=== PATIENT | male | born 1945 | race Caucasian/White ===

== ENCOUNTER 2017-04-18 09:06 | Inpatient (IN) | payer OTHER, MEDICARE ==
[~2017-04-18] VITALS: Ht 188 cm; Wt 83.9 kg
--- NOTE | 2017-04-18 09:17 | ED SYNCOPE COMPLAINT ---
History of Present Illness General Chief Complaint: Syncope and Near-Syncope Stated Complaint: NEAR SYNCOPE/R/O DEHYDRATION Vital Signs & Intake/Output Vital Signs & Intake/Output Vital Signs Date Time Temp Pulse Resp B/P B/P Pulse O2 O2 Flow FiO2 Mean Ox Delivery Rate 04/19 1028 Room Air Room Air 04/19 0948 Room Air 04/19 0712 98.2 57 18 104/54 94 Nasal Cannula 04/18 2218 98.0 57 20 100/56 93 04/18 1813 99.7 62 20 100/60 94 04/18 1810 Nasal 2.0L Cannula 04/18 1610 100.8 96 22 120/77 96 Nasal 3.0L Cannula 04/18 1530 Nasal 2.0L Cannula 04/18 1404 98.9 04/18 1311 98.9 102 20 104/58 94 Nasal 3.0L Cannula 04/18 1235 100.2 100 04/18 1210 101.2 90 22 106/59 96 Nasal 3.0L Cannula ED Intake and Output 04/19 0000 04/18 1200 Intake Total 770 2100 Output Total 330 Balance 440 2100 Intake, IV 450 2100 Intake, Oral 320 0 Output, Urine 330 Patient 185 lb 185 lb Weight Weight Reported by Patient Reported by Patient Measurement Method Triage Note: PT HAD NEAR SYNCOPE IN SHOWER WAS ABLE TO GET TO PT AND SIT HIM DOWN. WHEN EMS SHOWED UP PT HAS A SECOND NEAR SYNCOPAL EPISODE. PT HAD NEVER FALLEN AND DID NOT HIT HIS HEAD. (Sebastian GARCIA,Mc) General Source: patient, family, EMS Exam Limitations: no limitations Allergies Coded Allergies: NO KNOWN ALLERGIES (NONE 04/18/17) NKDA PER [facility] ANTIBIOTIC ORDER SHEET. -- JUDY 06/25/14 Reconcile Medications Apixaban (Eliquis) 5 MG TABLET 1 TAB PO BID BLOOD THINNER (Reported) Aspirin (Lo-Dose Aspirin EC) 81 MG TABLET.DR 1 TAB PO DAILY HEART HEALTH ( Reported) Oseltamivir Phosphate (Tamiflu) 75 MG CAPSULE 1 CAP PO BID FLU (Reported) Rosuvastatin Calcium (Crestor) 10 MG TABLET 1 TAB PO DAILY CHOLESTEROL ( Reported) Valsartan (Diovan) 160 MG TABLET 1 TAB PO DAILY HEART (Reported) Triage Nurses Notes Reviewed? yes HPI: This is a 71-year-old male with history of hypertension, paroxysmal A. fib who presents to the ER via EMS from home for chief complaint of syncopal episode while in the shower. According to the patient he had high fever of 103 in the middle of the night with right rigors and chills. He is currently on Tamiflu and azithromycin. He's been treating himself for what he presumed was the flu and for pneumonia. History of pneumonia previously. The states in the shower this morning while he was trying to get ready for work his legs wouldn't hold him and he passed out. She prevented him from hitting his head. His eyes rolled back. No incontinence or postictal state. Patient has been reporting chest pain which he states is not exertional but only when he,'s. He was able to take a 1 mile walk with his yesterday feeling better than he had since Sunday however last night things came worse. (Heidi CLEMONS,Clara) Past History Travel History Traveled to [place] past 21 day No Medical History Any Pertinent Medical History? see below for history Cardiovascular: AFIB, CAD, hypertension, hyperlipidemia, STENTS 2.5 YEARS AGO RCA/ LED Surgical History Surgical History: non-contributory Psychosocial History What is your primary language Ugandan Tobacco Use: Never used ETOH Use: occasional use Illicit Drug Use: denies illicit drug use Family History Hx Contributory? No (Mc Em) Review of Systems Review of Systems Constitutional: Reports: see HPI, chills, fever, malaise, weakness. EENTM: Reports: nasal congestion. Respiratory: Reports: see HPI, cough, short of breath, wheezing. Cardiovascular: Reports: no symptoms. GI: Reports: no symptoms. Genitourinary: Reports: no symptoms. Musculoskeletal: Reports: muscle pain. Skin: Reports: no symptoms. Neurological/Psychological: Reports: weakness. All Other Systems: Reviewed and Negative (Mc mE) Physical Exam Physical Exam General Appearance: well developed/nourished, no apparent distress, alert, awake , anxious Head: atraumatic, normal appearance Eyes: Bilateral: normal appearance, PERRL, EOMI. Ears, Nose, Throat: normal pharynx, normal ENT inspection, hearing grossly normal, moist mucus membranes Neck: normal inspection, supple, full range of motion Respiratory: chest non-tender, no respiratory distress, wheezing (BILATERAL ) Cardiovascular: regular rate/rhythm, normal peripheral pulses Gastrointestinal: normal bowel sounds, soft, non-tender, no organomegaly Back: normal inspection, normal range of motion, no vertebral tenderness Extremities: normal inspection, normal range of motion, no edema Psychiatric: awake, alert, oriented x 3 Cranial Nerves: normal hearing, normal speech, PERRL Coordination/Gait: normal finger to nose Motor/Sensory: no motor/sensory deficits Skin: intact, normal color, warm/dry Lymphatic: no anterior cervical alycia Core Measures ACS in differential dx? No CVA/TIA Diagnosis: No Sepsis Present: No Sepsis Focused Exam Completed? No (Sebastian GARCIA,Mc) Progress Differential Diagnosis: AMI, aortic valve, drug induced syncope, orthostatic syncope, pulmonary embolus, SEPSIS, PNEUMONIA, INFLUENZA, DEHYDRATION, ELECTROLYTE ABNORMALITY, uti Plan of Care: Orders Procedure Date/time Status THERAPIST ORDERS 04/19 1027 Complete RT: Evaluation 04/19 1027 Active HEPATIC FUNCTION PANEL 04/19 0600 Complete CBC WITHOUT DIFFERENTIAL 04/19 0600 Complete BASIC ELECTROLYTES PLUS BUN&CR 04/19 0600 Complete Regular Diet 04/18 L Complete TROPONIN LEVEL 04/18 2200 Complete EKG 04/18 2200 Active Telemetry/Sewer And Cutter Finger Buff Material 04/18 2146 Active OXYGEN SETUP (GEN) 04/18 1900 Complete Vital Signs 04/18 1813 Active Teach/Educate 04/18 1813 Active Pain Treatment and Response 04/18 1813 Active Nutritional Intake, Monitor 04/18 1813 Active Isolation 04/18 1813 Active Intake & Output 04/18 1813 Active Patient Care Conference 04/18 1813 Active Activity/Ambulation 04/18 1813 Active Lab Add-on Test 04/18 1600 Active TROPONIN LEVEL 04/18 1600 Complete EKG 04/18 1600 Active STREP PNEUMO URINARY ANTIGEN 04/18 1440 Complete LEGIONELLA URINARY ANTIGEN 04/18 1440 Complete TROPONIN LEVEL 04/18 1320 Complete EKG 04/18 1319 Active Pathway - chart 04/18 1157 Active House Staff 04/18 1157 Active Patient Data 04/18 1157 Active Code Status 04/18 1157 Active LACTIC ACID 04/18 0943 Complete Intake & Output 04/18 0926 Active OXYGEN SETUP CHG 04/18 UNK Complete OXYGEN 04/18 UNK Complete OXYGEN TRANSPORT 04/18 UNK Complete TRC EVALUATION (GEN) 04/18 UNK Complete Lab Add-on Test 04/18 UNK Active VTE Mechanical Prophylaxis 04/18 UNK Active Vital Signs 04/18 UNK Complete MISTAKE 04/18 UNK Complete Telemetry/Sewer And Cutter Finger Buff Material 04/18 UNK Complete Current Medications Sig/David Start time Last Medication Dose Stop Time Status Admin Oseltamivir Phosphate 75 MG BID 04/18 2199 AC 04/19 (Tamiflu 75MG) 04/19 2200 0908 Atorvastatin Calcium 10 MG 1700 04/18 1700 AC (Lipitor) Albuterol Sulfate 3 ML Q6P PRN 04/18 1215 AC (Proventil) Apixaban 5 MG BID 04/18 1203 AC 04/19 (Eliquis) 0908 Aspirin Buffered 81 MG DAILY 04/18 1203 AC 04/19 (Ecotrin) 0908 Acetaminophen 650 MG Q6P PRN 04/18 1200 AC 04/18 (Tylenol) 2326 Acetaminophen 1,000 MG Q6P PRN 04/18 1200 AC 04/18 (Ofirmev) 1705 Oxycodone/ 1 TAB Q6P PRN 04/18 1200 AC Acetaminophen (Percocet) Laboratory Tests 04/19/17 0630: Anion Gap 8, Estimated GFR > 60, BUN/Creatinine Ratio 13.0, Total Bilirubin 0.4, Direct Bilirubin 0.2, AST 56, ALT 81 H, Alkaline Phosphatase 67, Total Protein 4.6 L, Albumin 2.5 L, CBC w Diff MAN DIFF ORDERED, RBC 3.77 L, MCV 93.9, MCH 31.3 H, MCHC 33.3, RDW 13.7, MPV 8.6, Gran % 87.0 H, Lymphocytes % 11.9 L, Monocytes % 1.1 L, Eosinophils % 0, Basophils % 0, Absolute Granulocytes 12.6 H, Segmented Neutrophils 63, Band Neutrophils 23 H, Absolute Lymphocytes 1.7, Lymphocytes 14 L, Absolute Monocytes 0.2, Absolute Eosinophils 0, Absolute Basophils 0, Platelet Estimate DECREASED, Normocytic RBCs VERIFIED, Normochromic RBCs VERIFIED 04/18/17 2239: Troponin I 0.02 04/18/17 1700: Troponin I 0.03 04/18/17 1400: Urinalysis LIGHT H, Urine Color YEL, Urine Clarity CLEAR, Urine pH 7.0, Ur Specific [place] 1.015, Urine Protein TRACE H, Urine Ketones NEG, Urine Nitrite NEG, Urine Bilirubin NEG, Urine Urobilinogen 0.2, Ur Leukocyte Esterase NEG, Ur Microscopic SEDIMENT EXAMINED, Urine RBC 1-3, Urine WBC RARE, Urine Bacteria FEW H, Urine Hemoglobin NEG, Urine Glucose NEG 04/18/17 1335: Troponin I 0.02 Microbiology 04/18 1440 URINE ROUT: Legionella Antigen - COMP 04/18 1440 URINE ROUT: Streptococcus pneumoniae Antigen (M - COMP Care of patient was transferred to Dr. Gordon. Hand-Off Endorsed To: Clara Gordon MD Endorsed Time: 1117 Pending: other (admission ) (Mc Em) Diagnostic Imaging: Viewed by Me: Radiology Read. Discussed w/RAD: Radiology Read. Pre-Hospital EKG: AFIB RVR, NSR Initial ED EKG: NSR (PAC) Prior EKG: unchanged Rhythm Strip: normal sinus rhythm Comments: PATIENT: RENETTA JONES PRESENT AGE: 71 PATIENT ACCOUNT NO: [id number] : 43 LOCATION: [facility] ORDERING PHYSICIAN: Clara Gordon MD SERVICE DATE: 04/18/17 EXAM TYPE: RAD - XRY-PORTABLE CHEST XRAY EXAMINATION: XR PORTABLE CHEST CLINICAL INFORMATION: Cough. Fever. Syncope. COMPARISON: None TECHNIQUE: Portable frontal view of the chest was obtained. FINDINGS: The lungs are mildly hypoexpanded. There is mild asymmetrical elevation of the right hemidiaphragm. Left retrocardiac densities are noted, atelectasis is favored over pneumonia. The remainder of the lungs appear clear. No pleural effusions, pulmonary edema or pneumothorax. Cardiomediastinal silhouette is within normal limits for technique. The osseous structures are unremarkable. IMPRESSION: Lower lung volumes. Left retrocardiac linear opacities, atelectasis is favored over pneumonia. If clinically warranted consider chest x-rays in PA and lateral views. DICTATED BY: Andrea Estrada MD DATE/TIME DICTATED:04/18/171103 MEDICAL CLAIMS ANALYST:ANA DATE/TIME TRANSCRIBED:04/18/171103 CONFIDENTIAL, DO NOT COPY WITHOUT APPROPRIATE AUTHORIZATION. <Electronically signed in Other Vendor System> SIGNED BY: Andrea Estrada MD 04/18/17 110 (Clara Gordon MD) Departure Departure Referrals: Renetta Jones MD Departure Forms: Customer Survey General Discharge Information (Mc Em) Departure Time of Disposition: 1120 Disposition: STILL A PATIENT Condition: Stable Clinical Impression Primary Impression: Influenza B Secondary Impressions: PAF (paroxysmal atrial fibrillation), Pneumonia, Syncope and collapse Admission Note Spoke With: Sugar Smith MD Documentation of Exam: Documentation of any treatments & extenuating circumstances including Concerns Regarding Discharge (functional status, medication knowledge or non-compliance, living conditions, etc.) that warrant an admission rather than observation: [ TELE MONITOR, SERIAL EKG/TROPONIN, TAMIFLU, IV ABX, TRC/NEBS, IV FLUIDS, ANTIPYRETICS, F/U CULTURES] PA/RESTAURANT TEAM MEMBER Co-Sign Statement Statement: ED Attending supervision documentation- [X] I saw and evaluated the patient. I have also reviewed all the pertinent lab results and diagnostic results. I agree with the findings and the plan of care as documented in the PA's/RESTAURANT TEAM MEMBER's documentation. [X] I have reviewed the ED Record and agree with the PA's/RESTAURANT TEAM MEMBER's documentation. [] Additions or exceptions (if any) to the PAs/RESTAURANT TEAM MEMBER's note and plan are summarized below: [] (Heidi CLEMONS,Clara) ED Attending Observation Initial Observation Note: I have seen and personally examined RENETTA JONES on 04/18/17 at 1100. I agree with the current emergency department documentation. The disposition (admission or discharge) is uncertain at this time, he needs a period of observation for the following reason(s): The ED Nurse caring for this patient has been personally informed as to what the patient is being observed for. (Sebastian GARCIA,Mc)
[2017-04-18 09:53] LABS: ABSOLUTE BASOPHIL COUNT 0 /CUMM (0.0-0.2); ABSOLUTE EOSINOPHIL COUNT 0 /CUMM (0.0-0.7); ABSOLUTE GRANULOCYTE CT 9.8 /CUMM (1.4-6.5); ABSOLUTE LYMPH COUNT 0.4 /CUMM (1.2-3.4); ABSOLUTE MONOCYTE COUNT 0.3 /CUMM (0.10-0.60); BASOPHIL % 0.1 % (0.0-2.0); EOSINOPHIL % 0 % (0-5); GRANULOCYTE % 93.1 % (42.2-75.2); HEMATOCRIT 41.9 % (42-52); MEAN CORPUSCULAR HGB 31.3 PG (27.0-31.0); MEAN CORPUSCULAR HGB CONC 34.1 G/DL (33.0-37.0); MEAN CORPUSCULAR VOLUME 91.8 FL (80.0-94.0); MEAN PLATELET VOLUME 8.3 FL (7.4-10.4); PLATELET COUNT 160 /CUMM (130-400); RBC DISTRIBUTION WIDTH 13.1 % (11.5-14.5); RED BLOOD CELL CT 4.57 /CUMM (4.70-6.10); WHITE BLOOD CELL COUNT 10.5 /CUMM (4.8-10.8)
[2017-04-18] MEDS ORDERED: ELIQUIS5 M1 PO (10:10)
[2017-04-18] MEDS ORDERED: LO-DOSE ASPIRIN81 MG PO (10:11)
[2017-04-18] MEDS ORDERED: TAMIFLU75 M1 PO (10:11)
[2017-04-18] MEDS ORDERED: CRESTOR10 M1 PO (10:13)
[2017-04-18] MEDS ORDERED: DIOVAN160 MG PO (10:14)
--- NOTE | 2017-04-18 11:09 | RADIOLOGY REPORT ---
EXAMINATION: XR PORTABLE CHEST CLINICAL INFORMATION: Cough. Fever. Syncope. COMPARISON: None TECHNIQUE: Portable frontal view of the chest was obtained. FINDINGS: The lungs are mildly hypoexpanded. There is mild asymmetrical elevation of the right hemidiaphragm. Left retrocardiac densities are noted, atelectasis is favored over pneumonia. The remainder of the lungs appear clear. No pleural effusions, pulmonary edema or pneumothorax. Cardiomediastinal silhouette is within normal limits for technique. The osseous structures are unremarkable. IMPRESSION: Lower lung volumes. Left retrocardiac linear opacities, atelectasis is favored over pneumonia. If clinically warranted consider chest x-rays in PA and lateral views.
--- NOTE | 2017-04-18 11:53 | History & Physical ---
Mynor Fay 04/18/17 1153: General Information and HPI MD Statement: I have seen and personally examined RENETTA ECHOLS and documented this H&P. The patient is a 71 year old M who presented with a patient stated chief complaint of fever, chills, near syncope. Source of Information: patient, family Exam Limitations: no limitations History of Present Illness: This is a 71-year-old male with past medical history significant for hypertension, history of paroxysmal atrial fibrillation status post ablation 4 years ago, on anticoagulation eliqus 5 mg twice a day, hyperlipidemia, coronary artery disease status post stent placement RCA and left main coronary artery 3 years ago presented to the emergency department for evaluation of fever, chills, near syncope this morning. Patient reports fever and chills since last Sunday, max temperature 103. He started taking Tamiflu since 04/15/2017 75 mg twice daily-completed 3 day course so far. Patient also reports taking azithromycin since Sunday, completed 4 days of Z-Kostas so far. Patient reports generalised weakness, shortness of breath on exertion, chest pain from coughing. Also reports green colored sputum production. Given his symptoms he started Tamiflu and azithromycin for bronchitis. Patient reports an episode of near syncope this morning when he was taking shower. He was too weak to stand up. His helped him to get out of the shower. EMS was called. EMS noticed one more episode of near syncope. Denies any loss of consciousness, seizure episode, hitting head, post event confusion, urinary or bladder incontinence. Reports lightheadedness and dizziness prior to the evening. Review of systems positive for fever, chills, productive cough, generalized weakness, shortness of breath on exertion, musculoskeletal chest pain from coughing. Denied any nausea, vomiting, abdominal pain, constipation, diarrhea, change in urinary habits. Patient also reports being dehydrated for the last 3 days. Also reports generalized body aches and headache. Patient denies any smoking, alcohol abuse, illicit drug abuse. Family history significant for coronary artery disease father, rheumatic heart disease mother, atrial fibrillation sister. Off note he lives at home with his and takes care of himself. He works as a primary care physician. Allergies/Medications Allergies: Coded Allergies: NO KNOWN ALLERGIES (NONE 04/18/17) NKDA PER [facility] ANTIBIOTIC ORDER SHEET. -- JUDY 06/25/14 Compliance With Home Meds: GOOD Past History Travel History Traveled to [place] past 21 day No Medical History Cardiovascular: AFIB, CAD, hypertension, hyperlipidemia, STENTS 2.5 YEARS AGO RCA/ LED Surgical History Surgical History: hernia repair-inguinal Past Family/Social History Family History Relations & Conditions if any Relation not specified for: *No pertinent family history Psychosocial History Smoking Status: Former Smoker ETOH Use: occasional use Illicit Drug Use: denies illicit drug use Review of Systems Review of Systems Constitutional: Reports: chills, fever, weakness. Denies: diaphoresis. EENTM: Denies: blurred vision, double vision. Cardiovascular: Reports: syncope. Denies: chest pain, edema, orthopena, palpitations, peripheral edema. Respiratory: Reports: cough, short of breath, sputum production. Denies: hemoptysis, orthopnea, stridor, wheezing. GI: Denies: abdominal pain, bloating, constipation, diarrhea, distention. Genitourinary: Denies: dysuria, frequency, hematuria. Musculoskeletal: Denies: back pain, gout, joint pain. Neurological/Psychological: Denies: anxiety, ataxia, confusion, depressed. Exam & Diagnostic Data Last 24 Hrs of Vital Signs/I&O Vital Signs Date Time Temp Pulse Resp B/P B/P Pulse O2 O2 Flow FiO2 Mean Ox Delivery Rate 04/18 1210 101.2 90 22 106/59 96 Nasal 3.0L Cannula 04/18 1130 99.0 04/18 1108 99.0 82 22 113/74 94 Nasal 3.0L Cannula 04/18 1025 94 Nasal 2.0L Cannula 04/18 0926 97 04/18 0924 100.0 74 18 102/64 96 Room Air Intake & Output 04/18 1600 04/18 0800 04/18 0000 Intake Total 2100 Output Total Balance 2100 Intake, IV 2100 Intake, Oral 0 Patient 83.915 kg Weight Weight Reported by Patient Measurement Method Physical Exam General Appearance Alert, Oriented X3, Cooperative, No Acute Distress Skin No Rashes, No Breakdown Skin Temp/Moisture Exam: Warm/Dry Sepsis Skin Exam (color): Normal for Ethnicity HEENT Atraumatic, PERRLA, EOMI, Mucous Membr. moist/pink Neck Supple, No JVD Lymphatic Axillary nl, Cervical nl Cardiovascular Regular Rate, Normal S1, Normal S2, No Murmurs Lungs Clear to Auscultation, Normal Air Movement Abdomen Normal Bowel Sounds, Soft, No Tenderness Neurological Strength at 5/5 X4 Ext, Cranial Nerves 3-12 NL, Reflexes 2+ Extremities No Clubbing, No Cyanosis, No Edema, Normal Pulses, No Tenderness/ Swelling Vascular Normal Pulses, Pulses Symmetrical Sepsis Peripheral Pulse Location: Radial Sepsis Peripheral Pulse Exam: Normal Sepsis Cap Refill Exam: <2 Sec Last 24 Hrs of Labs/Ervin: Laboratory Tests 04/18/17 1004: Virus Culture Pending 04/18/17 0943: Lactic Acid Pending 04/18/17 0943: Anion Gap 11, Estimated GFR 54 L, BUN/Creatinine Ratio 12.3, Glucose 116 H, Calcium 9.0, Magnesium 1.7, Total Bilirubin 0.6, AST 119 H, ALT 118 H, Alkaline Phosphatase 106, Troponin I 0.03, Total Protein 6.7, Albumin 3.9, Globulin 2.8, Albumin/Globulin Ratio 1.4, Triglycerides 56, Cholesterol 133, LDL Cholesterol, Calc 64 L, HDL Cholesterol 58, Cholesterol/HDL Ratio 2, TSH &T3 & Free T4 Intrp 1.050, CBC w Diff MAN DIFF ORDERED, RBC 4.57 L, MCV 91.8, MCH 31.3 H, MCHC 34.1, RDW 13.1, MPV 8.3, Gran % 93.1 H, Lymphocytes % 3.7 L, Monocytes % 3.1, Eosinophils % 0, Basophils % 0.1, Absolute Granulocytes 9.8 H, Segmented Neutrophils 70, Band Neutrophils 21 H, Absolute Lymphocytes 0.4 L, Lymphocytes 6 L, Monocytes 3, Absolute Monocytes 0.3, Absolute Eosinophils 0, Absolute Basophils 0, Platelet Estimate ADEQUATE, Normocytic RBCs VERIFIED, Normochromic RBCs VERIFIED, Fld Total RBCs Counted 100 Microbiology 04/18 1029 LOWER RESP: Respiratory Culture - ORD 04/18 1029 LOWER RESP: Gram Stain - ORD 04/18 1000 BLOOD: Blood Culture - RECD 04/18 944 BLOOD: Blood Culture - RECD 04/18 09 NASOPHARYN: Influenza Virus A & B Rapid Smear - COMP INFLUENZA TYPE B Diagnostic Data EKG Results Sinus rhythm, atrial premature complexes, no ST-T wave changes CXR Results Atelectasis versus pneumonia Assessment/Plan Assessment: This is a 71-year-old male with past medical history significant for hypertension, history of paroxysmal atrial fibrillation status post ablation 4 years ago, on anticoagulation eliqus 5 mg twice a day, hyperlipidemia, coronary artery disease status post stent placement RCA and left main coronary artery 3 years ago presented to the emergency department for evaluation of fever, chills, near syncope this morning. vitals MAXIMUM TEMPERATURE 101.2, heart rate 74, respiratory rate 18, blood pressure 102/64, saturating at 96 on room air. WBC 10.5, 21 bands, hemoglobin 14 and hematocrit 41, platelet 160 Sodium 135, potassium 4.1, BUN 16 and creatinine 1.3 Troponin normal Positive for flu. Received ceftriaxone, normal saline bolus in the emergency room. Chest x-ray findings suggestive of atelectasis versus pneumonia of left lower lobe EKG sinus rhythm, premature atrial complexes, no ST-T wave changes. patient was found to be in atrial fibrillation,, rate 150, irregularly irregular RR interval in the ambulance. Problem list 1. Fever, flu 2. Bronchitis/pneumonia 3. Near syncope 4. Paroxysmal atrial fibrillation 5. Acute kidney injury 7. Abnormal LFTs 8. History of CAD status post stent placement 9. Hyperlipidemia 10. History of hypertension Fever and flu/bronchitis Patient reports fever and chills since last Sunday, max temperature 103. He started taking Tamiflu since 04/15/2017 75 mg twice daily-completed 3 day course so far. Patient also reports taking azithromycin since Sunday, completed 4 days of Z-Kostas so far. Patient reports generalised weakness, shortness of breath on exertion, chest pain from coughing. Also reports green colored sputum production. Given his symptoms he started Tamiflu and azithromycin for bronchitis. * MAXIMUM TEMPERATURE 101.2 in the emergency room, positive for flu. * Found to have 21 bands. * Admit to telemetry floor for near syncope and cardiac monitoring * Monitor vitals closely every shift * Provide supplemental oxygen if necessary * Continue Tamiflu 75 mg twice daily for 2 more days * Received last dose of azithromycin in the emergency room today. Completed 5 days of Z-Kostas for bronchitis. * The total respiratory care * Albuterol inhaler treatments * Tylenol for fever * Closely monitor WBC and fever curve * Please follow-up lactic acid Near syncope Patient reports an episode of near syncope this morning when he was taking shower. EMS was called. EMS noticed one more episode of near syncope. Denies any loss of consciousness, seizure episode, hitting head, post event confusion, urinary or bladder incontinence. Reports lightheadedness and dizziness prior to the event. * Continuous telemetry monitoring * Serial troponin and EKG at 4 PM and 10PM. * Follow-up with cardiology recommendations Dr. Smith * Follow-up orthostatic vitals Paroxysmal atrial fibrillation Patient has history of paroxysmal atrial fibrillation status post ablation 4 years ago. He has been taking ELIQUS 5 mg twice daily. He was found to have an episode of paroxysmal A. fib in the ambulance. However he is in sinus rhythm with no ST-T wave changes, rate 78 in the emergency room. * Continuous telemetry monitoring * Follow cardiology recommendations * Continue home dose of ELIQUS 5 mg twice daily Acute kidney injury Patient was found to have 1.3 creatinine at the time of admission. His baseline creatinine was 1. Most likely from dehydration and flu. * Please hold home medication valsartan for now * Continue gentle IV hydration 2 bags of normal saline 75 mg/hr was ordered * Repeat creatinine in a.m. * Please hold any nsaids and MABEL inhibitor's Abnormal LFTs Patient was found to have ALT and AST elevation 119 and 118. No prior LFT abnormalities. Most likely from statin use and dehydration. * Continue gentle hydration * Repeat LFTs in the a.m. Hyperlipidemia-continue Lipitor 10 mg daily Coronary artery disease-continue home medications baby aspirin 81 daily Borderline blood pressure-hold valsartan DVT prophylaxis on eliqus Full code Regular diet Pain pathway ordered As Ranked By This Provider Problem List: 1. Syncope and collapse 2. PAF (paroxysmal atrial fibrillation) 3. Influenza B 4. Pneumonia Core Measures/Misc (11/19) Acute Coronary Syndrome ACS Diagnosis: No Congestive Heart Failure Congestive Heart Failure Diagnosis No Cerebrovascular Accident CVA/TIA Diagnosis: No VTE (View Protocol) VTE Risk Factors No risk factors No Mechanical VTE Prophylaxis d/t N/A MechProphylax Ordered No VTE Pharm Prophylaxis d/t NA PharmProphylax ordered Sepsis (View protocol) Sepsis Present: No Maninder Smith MD 04/19/171926: General Information and HPI Allergies/Medications Home Med list Acetaminophen 500 MG TABLET 2 TAB PO Q8P PRN Fever or body aches . Apixaban (Eliquis) 5 MG TABLET 1 TAB PO BID BLOOD THINNER (Reported) Aspirin (Lo-Dose Aspirin EC) 81 MG TABLET. 1 TAB PO DAILY HEART HEALTH ( Reported) Oseltamivir Phosphate (Tamiflu) 75 MG CAPSULE 1 CAP PO BID FLU (Reported) Potassium Chloride 20 MEQ TABLET.ER 1 TAB PO DAILY Supplement . Rosuvastatin Calcium (Crestor) 10 MG TABLET 1 TAB PO DAILY CHOLESTEROL ( Reported) Valsartan (Diovan) 160 MG TABLET 1 TAB PO DAILY HEART (Reported) Attending MD Review Statement Attending Statement Attending MD Statement: examined this patient, discuss w/resident/PA/CARAMEL COLORING OPERATOR, agreed w/resident/PA/CARAMEL COLORING OPERATOR, discussed with family, reviewed EMR data (avail), discussed with nursing, discussed with case mgmt, reviewed images, amended to note Attending Assessment/Plan: the patient was seen and evaluated, the case was discussed in detail with the house staff and with the patient and his . At the present time, the patient is to be admitted to the hospital for further evaluation and treatment. He has influenza and possible left lower lobe atelectasis/pneumonia. His white count is normal but he does have a bandemia. He had an episode of syncope prior to admission which was apparently associated with paroxysmal atrial fibrillation and a rapid ventricular rate. In addition, the patient has evidence of dehydration, mild acute renal insufficiency, and transaminitis with an elevated SGOT and SGPT. in addition, the patient has had brief episodes of atypical chest discomfort which appeared to be musculoskeletal or pleuritic related to coughing. There is no evidence of any acute cardiac issue at the present time. Recommendations: -Admitted to telemetry monitored floor -Continue regular medicines -IV fluid resuscitation with 1-1/2-2-1/2 L of saline over the next 24 hours -No need to perform echocardiogram at the present time -Follow-up laboratories in the morning including CBC with differential, follow- up liver function tests, all of electrolytes and renal function -Encourage by mouth intake -continue supplemental oxygen with reassessment in the morning. -if there is any evidence of chest discomfort, please notify me and obtain an EKG.
--- NOTE | 2017-04-18 12:38 | Cons- Cardiology ---
General Information and HPI Consulting Request Date of Consult: 04/18/17 Requested By: Sugar Smith MD Allergies/Medications Allergies: Coded Allergies: NO KNOWN ALLERGIES (NONE 04/18/17) NKDA PER [facility]S ANTIBIOTIC ORDER SHEET. -- JUDY 06/25/14 Home Med List: Apixaban (Eliquis) 5 MG TABLET 1 TAB PO BID BLOOD THINNER (Reported) Aspirin (Lo-Dose Aspirin EC) 81 MG TABLET.DR 1 TAB PO DAILY HEART HEALTH ( Reported) Oseltamivir Phosphate (Tamiflu) 75 MG CAPSULE 1 CAP PO BID FLU (Reported) Rosuvastatin Calcium (Crestor) 10 MG TABLET 1 TAB PO DAILY CHOLESTEROL ( Reported) Valsartan (Diovan) 160 MG TABLET 1 TAB PO DAILY HEART (Reported) Past History Travel History Traveled to [place] past 21 day No Medical History Cardiovascular: AFIB, CAD, hypertension, hyperlipidemia, STENTS 2.5 YEARS AGO RCA/ LED Family History Relations & Conditions If Any: Relation not specified for: *No pertinent family history Psychosocial History ETOH Use: occasional use Illicit Drug Use: denies illicit drug use Assessment/Plan Consult Acknowledgment - Thank you for your consult request.
[2017-04-18 18:13] VITALS: BP 100/60
[2017-04-18 22:18] VITALS: BP 100/56
[2017-04-19 07:12] VITALS: BP 104/54
--- NOTE | 2017-04-19 07:14 | PN- Housestaff ---
Lori CLEMONS,[facility] 04/19/1714: Subjective Follow-up For: Generalized weakness, cough, shortness of breath, Influenza Complaints: Cough Tele-Events Since Last Visit: Sinus bradycardiasinus rhythm. Heart rate 49 to68 bpm. No events Subjective: The patient feels improved since yesterday and feels stronger. His shortness of breath is improved and he no longer feels weak. However he still has some cough productive of whitish sputum. He had a fever yesterday evening around 4 PM but no fevers since then and overnight. He denies chest pain, palpitations, lightheadedness. He is anxious to go home today. Review of Systems Constitutional: Reports: malaise. Denies: chills, fever, weakness. EENTM: Denies: nasal congestion, throat pain. Cardiovascular: Denies: chest pain, edema, orthopena, palpitations. Respiratory: Denies: cough, hemoptysis, short of breath. Gastrointestinal: Denies: abdominal pain, nausea, vomiting. Genitourinary: Denies: dysuria, frequency. Objective Last 24 Hrs of Vital Signs/I&O Vital Signs Date Time Temp Pulse Resp B/P B/P Pulse O2 O2 Flow FiO2 Mean Ox Delivery Rate 04/19 1028 Room Air Room Air 04/19 0948 Room Air 04/19 0712 98.2 57 18 104/54 94 Nasal Cannula 04/18 2218 98.0 57 20 100/56 93 04/18 1813 99.7 62 20 100/60 94 04/18 1810 Nasal 2.0L Cannula 04/18 1610 100.8 96 22 120/77 96 Nasal 3.0L Cannula 04/18 1530 Nasal 2.0L Cannula 04/18 1404 98.9 Intake & Output 04/19 1600 04/19 0800 04/19 0000 Intake Total 110 770 Output Total 525 275 330 Balance -525 -165 440 Intake, IV 10 450 Intake, Oral 100 320 Output, Urine 525 275 330 Patient 185 lb Weight Weight Reported by Patient Measurement Method Physical Exam General Appearance: Alert, Oriented X3, Cooperative, No Acute Distress Skin: No Rashes Skin Temp/Moisture Exam: Warm/Dry Sepsis Skin Exam (color): Normal for Ethnicity HEENT: Atraumatic, PERRLA, EOMI, Mucous Membr. moist/pink Neck: Supple, No JVD Lymphatic: Cervical nl Cardiovascular: Regular Rate, Normal S1, Normal S2 Lungs: Clear to Auscultation, Reduced air entry in left lung base. Abdomen: Normal Bowel Sounds, Soft, No Tenderness, No Hepatospenomegaly, No Masses Neurological: Normal Speech, Strength at 5/5 X4 Ext, Normal Tone, Cranial Nerves 3-12 NL Extremities: No Edema, Normal Pulses Current Medications: Current Medications Sig/David Start time Last Medication Dose Route Stop Time Status Admin Acetaminophen 0 .STK-MED ONE 04/18 1705 DC IV Acetaminophen 650 MG Q6P PRN 04/18 1200 AC 04/18 PO 2326 Acetaminophen 1,000 MG Q6P PRN 04/18 1200 AC 04/18 IV 1705 Albuterol Sulfate 3 ML Q6P PRN 04/18 1215 AC INH Apixaban 5 MG BID 04/18 1203 AC 04/19 PO 0908 Aspirin Buffered 81 MG DAILY 04/18 1203 AC 04/19 PO 0908 Atorvastatin Calcium 10 MG 1700 04/18 1700 AC PO Oseltamivir Phosphate 75 MG BID 04/18 2200 AC 04/19 PO 04/19 2201 0908 Oxycodone/ 1 TAB Q6P PRN 04/18 1200 AC Acetaminophen PO Patient Medication 1 ED ONE ONE 04/19 1200 DC Teaching ED 04/19 1201 Potassium Chloride 60 MEQ ONCE ONE 04/19 0900 DC 04/19 PO 04/19 0901 0908 Sodium Chloride 1,000 ML .[id number] 04/18 1200 DC 04/19 IV 04/19 1439 0129 Last 24 Hrs of Lab/Ervin Results Last 24 Hrs of Labs/Mics: Laboratory Tests 04/19/17 0630: Anion Gap 8, Estimated GFR > 60, BUN/Creatinine Ratio 13.0, Total Bilirubin 0.4, Direct Bilirubin 0.2, AST 56, ALT 81 H, Alkaline Phosphatase 67, Total Protein 4.6 L, Albumin 2.5 L, CBC w Diff MAN DIFF ORDERED, RBC 3.77 L, MCV 93.9, MCH 31.3 H, MCHC 33.3, RDW 13.7, MPV 8.6, Gran % 87.0 H, Lymphocytes % 11.9 L, Monocytes % 1.1 L, Eosinophils % 0, Basophils % 0, Absolute Granulocytes 12.6 H, Segmented Neutrophils 63, Band Neutrophils 23 H, Absolute Lymphocytes 1.7, Lymphocytes 14 L, Absolute Monocytes 0.2, Absolute Eosinophils 0, Absolute Basophils 0, Platelet Estimate DECREASED, Normocytic RBCs VERIFIED, Normochromic RBCs VERIFIED 04/18/17 2239: Troponin I 0.02 04/18/17 1700: Troponin I 0.03 04/18/17 1400: Urinalysis LIGHT H, Urine Color YEL, Urine Clarity CLEAR, Urine pH 7.0, Ur Specific [place] 1.015, Urine Protein TRACE H, Urine Ketones NEG, Urine Nitrite NEG, Urine Bilirubin NEG, Urine Urobilinogen 0.2, Ur Leukocyte Esterase NEG, Ur Microscopic SEDIMENT EXAMINED, Urine RBC 1-3, Urine WBC RARE, Urine Bacteria FEW H, Urine Hemoglobin NEG, Urine Glucose NEG 04/18/17 1335: Troponin I 0.02 Microbiology 04/18 1439 URINE ROUT: Legionella Antigen - COMP 04/18 1439 URINE ROUT: Streptococcus pneumoniae Antigen (M - COMP Assessment/Plan Assessment: The patient is a 71-year-old male with past medical history significant for hypertension, history of paroxysmal atrial fibrillation status post ablation 4 years ago, on anticoagulation eliqus 5 mg twice a day, hyperlipidemia, coronary artery disease status post stent placement RCA and left main coronary artery 3 years ago presented to the emergency department yesterday for evaluation of fever, chills, near syncope on the morning of presentation. He was found to be positive for influenza B. History S x-ray showed a left basilar opacity possibly atelectasis. His serial EKGs and troponins were negative for an acute coronary event and he is currently feeling much improved after rehydration with 2.5 L of normal saline. His lactic acid was normal at 1.5 prior to hydration. He will complete 5 days of treatment with Tamiflu tonight. He is anxious to be discharged and at this point he is stable enough for discharge with close follow -up in case his shortness of breath symptoms worsen which might indicate a developing pneumonia. Problem list 1. Fever and flu/bronchitis * He has been afebrile since yesterday evening and will complete his 5 days of Tamiflu tonight. He also completed 5 days of azithromycin. He reports that his generalized weakness and shortness of breath is improved today though he still having some mild cough * Will follow up on blood cultures and also ensure that sputum cultures sample is collected * He has leukocytosis of 14.5/CUMM with persistent bands of 23/cumm * At this time as patient has been counseled that he can be discharged with close follow-up and to report any worsening shortness of breath, fevers or lightheadedness to head of geography Dr. Smith as he might need additional chest x- ray imaging and treatment for a developing pneumonia. 2. Near syncope * Patient had no event on continuous telemetry monitoring * Serial troponin and EKG have been negative * Patient was advised to follow-up closely with head of geography Dr. Smith on discharge 3. Paroxysmal atrial fibrillation * Patient has been in acceptable ventricular rate since admission * Continue PO eliquis 5 mg twice a day 4. Acute kidney injury * Creatinine on admission was 1.3 and this has normalized to 1 today * Was likely due to dehydration from the flu * Patient was counseled to ensure adequate fluid and by mouth intake 5. Abnormal LFTs * He is AST normalized to 56 and his ALT reduced 81 this morning * Was likely due to dehydration 6. Hyperlipidemia-continue Lipitor 10 mg daily Coronary artery disease-continue home medications baby aspirin 81 daily Borderline blood pressure-hold valsartan and restart tomorrow DVT prophylaxis on eliqus Full code Regular diet Pain pathway ordered Problem List: 1. Influenza B 2. Syncope and collapse 3. PAF (paroxysmal atrial fibrillation) Pain Ratin Pain Location: None Pain Goal: Pain 4 or less Pain Plan: By mouth Tylenol as needed Tomorrow's Labs & Rationales: None needed DVT/Prophylaxis: pharmacological Discharge Plan Discharge Disposition: home Maninder Smith MD 04/19/171928: Attending MD Review Statement Attending Statement Attending MD Statement: examined this patient, discuss w/resident/PA/CLOUD INFRASTRUCTURE ARCHITECT, agreed w/resident/PA/CLOUD INFRASTRUCTURE ARCHITECT, discussed with family, reviewed EMR data (avail), discussed with nursing, discussed with case mgmt, reviewed images, amended to note Attending Assessment/Plan: the patient was seen and evaluated. Discussed with the patient, his family, and the house staff. The patient is clinically much better today. His transaminitis has improved. His white count is slightly elevated at 14,000 with persistent bandemia but the patient has been afebrile over the last 24 hours. He feels much better, he is off supplemental oxygen, he is oxygenating well. He has had no arrhythmias. His troponin is negative. For now, I would consider discharging the patient today. The patient should continue to remain at home for the next 24-48 hours. He will call me with any changes. Oral potassium supplement for one week at discharge. If there is any recurrence of any fever, the patient will call me and we will obtain a follow-up PA and lateral chest x- ray as outpatient. No antibiotics for now.
[2017-04-19 08:15] LABS: ABSOLUTE BASOPHIL COUNT 0 /CUMM (0.0-0.2); ABSOLUTE EOSINOPHIL COUNT 0 /CUMM (0.0-0.7); EOSINOPHIL % 0 % (0-5); MEAN PLATELET VOLUME 8.6 FL (7.4-10.4); RED BLOOD CELL CT 3.77 /CUMM (4.70-6.10); WHITE BLOOD CELL COUNT 14.5 /CUMM (4.8-10.8)
[2017-04-19 08:48] LABS: ABSOLUTE GRANULOCYTE CT 12.6 /CUMM (1.4-6.5); ABSOLUTE LYMPH COUNT 1.7 /CUMM (1.2-3.4); ABSOLUTE MONOCYTE COUNT 0.2 /CUMM (0.10-0.60); BASOPHIL % 0 % (0.0-2.0); MEAN CORPUSCULAR HGB 31.3 PG (27.0-31.0); MEAN CORPUSCULAR HGB CONC 33.3 G/DL (33.0-37.0); MEAN CORPUSCULAR VOLUME 93.9 FL (80.0-94.0); PLATELET COUNT 136 /CUMM (130-400); RBC DISTRIBUTION WIDTH 13.7 % (11.5-14.5)
[2017-04-19 08:49] LABS: HEMATOCRIT 35.4 % (42-52)
--- NOTE | 2017-04-19 11:53 | Discharge Summary ---
Visit Information Visit Dates Admission Date: 04/18/17 Discharge Date: 04/19/17 Hospital Course Course Attending Physician: Sugar Smith MD Primary Care Physician: Sohail Davis MD Consulting Request: Consulting Specialty: Cardiology Consulting Physician: Dr. Smith Reason for Consult: Syncope Hospital Course: The patient is a 71-year-old male with past medical history significant for hypertension, history of paroxysmal atrial fibrillation status post ablation 4 years ago, on anticoagulation-eliqus 5 mg twice a day, hyperlipidemia, coronary artery disease status post stent placement RCA and left main coronary artery 3 years ago presented to the emergency department for evaluation of fever and chills of 6 days duration, and near syncope on the morning of presentation. He had a fever and chills for the preceding 6 days with a max temperature 103 F. He also reported generalised weakness, shortness of breath on exertion along with chest pain from coughing. His cough was productive of green-colored sputum. He also had headaches and generalized body pains. Given his symptoms he started Tamiflu and azithromycin for bronchitis. At the time of presentation he was in today for of a 5-day course of Tamiflu and azithromycin/Z-Kostas without improvement in his symptoms. On the morning of presentation, patient developed an episode of near syncope in the morning when he was taking shower and was too weak to stand up. His helped him to get out of the shower and called EMS. EMS noticed one more episode of near syncope. He denied loss of consciousness, seizure episode, head trauma, post event confusion, urinary or bladder incontinence. He actually has been having reduced by mouth intake and reported lightheadedness and dizziness evening prior to presentation. At presentation ER he was febrile with a temperature 101.2 F, pulse was 90 bpm, respiratory rate was 22/m, blood pressure 106/59 mmHg, O2 sat 96% on 3 L of oxygen by nasal cannula. Physical Exam at presentation was as follows: General: Appearance Alert, Oriented X3, Cooperative, No Acute Distress Skin: No Rashes, No Breakdown Skin Temp/Moisture Exam: Warm/Dry Sepsis Skin Exam (color): Normal for Ethnicity HEENT: Atraumatic, PERRLA, EOMI, Mucous Membr. moist/pink Neck: Supple, No JVD Lymphatic: Axillary nl, Cervical nl Cardiovascular: Regular Rate, Normal S1, Normal S2, No Murmurs Lungs: Clear to Auscultation, Normal Air Movement Abdomen: Normal Bowel Sounds, Soft, No Tenderness Neurological: Strength at 5/5 X4 Ext, Cranial Nerves 3-12 NL, Reflexes 2+ Extremities: No Clubbing, No Cyanosis, No Edema, Normal Pulses, No Tenderness/ Swelling Vascular Normal Pulses, Pulses Symmetrical Labs showed white count of 10,500/UL, with bandemia of 21%. His hemoglobin was 14.3 and hematocrit 41.9. His CBC showed sodium of 135, potassium of 4.1, carbon dioxide of 21, BUN of 16 and creatinine of 1.3. His ALT was slightly elevated at 118, and his AST was 119. His lactic acid was normal at 1.5. He was found to be positive for influenza B. A chest x-ray showed a left basilar opacity possibly atelectasis. He was admitted to telemetry floor on account of near syncope and influenza with bronchitis. He also had some acute kidney injury from dehydration. He was rehydrated with IV normal saline and received 1 dose of IV ceftriaxone and was continued on IV azithromycin. He was continued on by mouth Tamiflu to complete a five-day course. He was continued on his home medications including apixaban for his atrial fibrillation. He was reviewed by ent nurse Dr. mSith and his serial EKGs and troponins were negative for an acute coronary event or myocardial infarction. On the second day of admission, he felt much improved after rehydration with 2.5 L of IV normal saline and was very motivated to be discharged home. However, his white count became elevated to 14,500/UL with persistent bandemia of 23%. The patient felt much better and was anxious to be discharged home. Notwithstanding , on account of his bandemia and his prior chest x-ray that showed a questionable left lung base opacity, it was decided that he could be discharged with close follow-up by his ent nurse, Dr. Smith. He was instructed to call his ent nurse for any persistent or worsening symptoms of shortness of breath, productive cough, or high fevers so that a repeat chest x-ray could be ordered and additional antibiotics prescribed for the possibility of a developing pneumonia. The patient and his were agreeable to this plan and he was discharged on 04/19/2017. Allergies: Coded Allergies: NO KNOWN ALLERGIES (NONE 04/18/17) NKDA PER [facility] ANTIBIOTIC ORDER SHEET. -- JUDY 06/25/14 Disposition Summary Disposition Principal Diagnosis: 1. Near syncope 2. Influenza 3. Bronchitis 4. Dehydration Additional Diagnosis: 5. Paroxysmal atrial fibrillation 6. Acute kidney injury 7. Abnormal LFTs 8. Hyperlipidemia Discharge Disposition: home or self care Discharge Instructions General Discharge Information Code Status: Full Code Patient's Diet: Regular diet Patient's Activity: Self-limited activity Follow-Up Instructions/Appts: 1. Follow up with your primary care provider within 1 week of discharge. 2. Follow up with your ent nurse, Dr. Smith within 1 week of discharge. 3. Complete total of 5 days of tamiflu therapy by taking one last tablet of 75 mg tamiflu tonight at bedtime. 4. If you have worsening symptoms of shortness of breath or productive cough and high fevers, call your ent nurse, Dr. Smith as you may need a repeat chest X-ray and additional treatments. Medications at Discharge Discharge Medications: Continue taking these medications: Apixaban (Eliquis) 5 MG TABLET 1 Tablet ORAL TWICE DAILY Qty = 180 Comments: Last Taken: 04/19/17 Time: 0900 AM Aspirin (Lo-Dose Aspirin EC) 81 MG TABLET.DR 1 Tablet ORAL DAILY Comments: Last Taken: 04/19/17 Time: 0900 AM Oseltamivir Phosphate (Tamiflu) 75 MG CAPSULE 1 Capsule ORAL TWICE DAILY Qty = 10 Comments: Last Taken: 04/19/17 Time: 0900 AM Rosuvastatin Calcium (Crestor) 10 MG TABLET 1 Tablet ORAL DAILY Comments: NOT GIVEN IN HOSPITAL Valsartan (Diovan) 160 MG TABLET 1 Tablet ORAL DAILY Comments: NOT GIVEN IN HOSPITAL Start taking the following new medications: Acetaminophen (Acetaminophen) 500 MG TABLET 2 Tablet ORAL EVERY 8 HOURS NEEDED as needed for Fever or body aches Qty = 21 No Refills Instructions: . Comments: Last Taken: 04/18/17 Time: 1130 PM Potassium Chloride (Potassium Chloride) 20 MEQ TABLET.ER 1 Tablet ORAL DAILY Qty = 7 No Refills Instructions: . Comments: Last Taken: 04/19/17 Time: 0900 AM Copies To: Karen CLEMONS,Alexis Jimenez; Susan CLEMONS,Sohail Ann
[2017-04-19] MEDS ORDERED: ACETAMINOPHEN500 M4 PO ×2 (12:02→12:57)
--- NOTE | 2017-04-19 12:10 | Patient Discharge Instructions ---
Discharge Instructions General Discharge Information You were seen/treated for: Syncope and dehydration with influenza Watch for these problems: Lightheadedness, chest pains, fainting, worsening fevers. Special Instructions: 1. Follow up with your primary care provider within 1 week of discharge. 2. Follow up with your methods analyst, Dr. Smith within 1 week of discharge. 3. Complete total of 5 days of tamiflu therapy by taking one last tablet of 75 mg tamiflu tonight at bedtime. 4. If you have worsening symptoms of shortness of breath or productive cough and high fevers, call your methods analyst, Dr. Smith as you may need a repeat chest X-ray and additional treatments. Diet Recommended Diet: Heart Healthy Activity Full Activity/No Limits: No Activity Self Limited: Yes Acute Coronary Syndrome Inclusion Criteria At DC or during hospital stay patient has or had the following: ACS DIAGNOSIS No Discharge Core Measures Meds if any: Prescribed or Continued at Discharge Meds if any: NOT Prescribed or Continued at Discharge Congestive Heart Failure Inclusion Criteria At DC or during hospital stay patient has or had the following: CHF DIAGNOSIS No Discharge Core Measures Meds if any: Prescribed or Continued at Discharge Meds if any: NOT Prescribed or Continued at Discharge Cerebrovascular accident Inclusion Criteria At DC or during hospital stay patient has or had the following: CVA/TIA Diagnosis No Discharge Core Measures Meds if any: Prescribed or Continued at Discharge Meds if any: NOT Prescribed or Continued at Discharge Venous thromboembolism Inclusion Criteria VTE Diagnosis No VTE Type NONE VTE Confirmed by (Test) NONE Discharge Core Measures - Per Current guidelines, there needs to be overlap - treatment for the first 5 days of Warfarin therapy. - If discharged on Warfarin prior to 5 days of - overlap therapy, the patient will need to be - assessed for post discharge needs including - *Post discharge parental anticoagulation - *Warfarin and/or parental anticoagulation education - *Follow up date to check INR post discharge At least 5 days overlap therapy as Inpatient No Meds if any: Prescribed or Continued at Discharge Note: Overlap Therapy is Warfarin and Anticoagulant Meds if any: NOT Prescribed or Continued at Discharge
[2017-04-19] MEDS ORDERED: POTASSIUM CHLO20 ME4 PO ×2 (12:51→12:57)
== END 2017-04-19 13:19 | DRG 194 ==
LOC: ERH 09:06 → ERHI 11:15 → 1NO 11:15 → ERHI 13:13 → ENRESERV 16:54 → ENTRNSPT 17:39 → EDTRNSPTSTS 17:47 → 1NO 18:08 → CMPTRNSPT 18:12 → ENPENDDIS 04-19 12:59 → 1NO 04-19 13:19
PROVIDERS: Hospitalist; Physician Assistant Medical
DX: J10.1 Influenza due to other identified influenza virus with other respiratory manifestations (principal); N17.9 Acute kidney failure, unspecified; Z87.891 Personal history of nicotine dependence; I25.10 Atherosclerotic heart disease of native coronary artery without angina pectoris; I10 Essential (primary) hypertension; I48.0 Paroxysmal atrial fibrillation; Z79.01 Long term (current) use of anticoagulants; Z95.5 Presence of coronary angioplasty implant and graft; E78.5 Hyperlipidemia, unspecified; J40 Bronchitis, not specified as acute or chronic
CPT/HCPCS: 1NP; 36415; 36592; 71045; 81001; 82436; 87040; 87070; 87071; 87449; 87450; 87804; 87804-59; 93005; 93010; 96361; 96365; 96375; J0131; J0456; J0696; J3490; J7060